=== PATIENT | female | born 1995 ===

== ENCOUNTER 2017-02-03 13:18 | Emergency (ER) | payer MEDICAID ==
[2017-02-03 13:35] VITALS: BP 103/68; PULSE 69; RESP 18; TEMP 98.2; O2SAT 100
[2017-02-03 14:08] LABS: RBC URINE 12 /hpf (0-3); URINE BACTERIA RARE (<OCC); URINE BILIRUBIN NEGATIVE (NEGATIVE); URINE BLOOD NEGATIVE (NEGATIVE); URINE COLOR Yellow (YELLOW); URINE GLUCOSE (UA) NORMAL (Normal); URINE KETONE NEGATIVE (NEGATIVE); URINE LEUKOCYTE ESTERASE 2+ Leu/uL (Negative); URINE PROTEIN NEGATIVE (NEGATIVE); URINE UROBILINOGEN NORMAL mg/dL (0.2-1.0); WBC URINE 16 /hpf (0-5)
--- NOTE | 2017-02-03 16:10 | US ---
HISTORY: pain, s/p d c 4 days ago. LMP 12/10/2016. COMPARISON: 10/30/2016 TECHNIQUE: Transabdominal, transvaginal. Real -time technique with 2D, duplex and color Doppler. FINDINGS: UTERUS: Measures 4.5 x 9.7 cm. Normal in size and appearance. No fibroid or other mass lesion seen. ENDOMETRIUM: Measures 9.5 mm in diameter. No ultrasound findings to suggest gestational sac, fluid, debris, mass or polyp or other pathologic process within the endometrium. CERVIX: No cervical abnormality identified. Closed cervix 3.2 cm in length RIGHT OVARY: Measures 1.3 x 3.3 cm. No solid mass. Normal flow. Multiple subcentimeter follicles. LEFT OVARY: Measures 3.7 x 3.1 cm. No solid mass. Normal flow. Full field digital CC and MLO views of bilateral breasts were obtained. Computer-aided detection was utilized. FREE FLUID: Trace free fluid identified in the pelvis/cul de sac. OTHER FINDINGS: None. IMPRESSION: No acute findings related to/accounting for the clinical presentation. Incidental finding(s): Free fluid in the cul-de-sac, trace amount.
--- NOTE | 2017-02-03 16:22 | C.PDOC ---
History Of Present Illness The patient, a 21 y/o female, presents to the ED for evaluation of vaginal pain and itching associated which began yesterday. Patient is s/p D&C which she underwent around 4 days ago. She notes experiencing heavy bleeding after the procedure (which is normally gets s/p d&c) and now has spotting now. On antibiotics- doxycyline s/p D&C. Patient admits to engaging in intercourse multiple times following the D&C. Patient denies fever, chills, back pain, abdominal pain, vaginal discharge. Time Seen by Provider: 02/03/17 13:52 Chief Complaint (Nursing): Female Genitourinary History Per: Patient History/Exam Limitations: language barrier Onset/Duration Of Symptoms: Hrs Current Symptoms Are (Timing): Still Present Quality Of Discomfort: "Pain" Associated Symptoms: denies: Fever, Chills, Back Pain Additional History Per: Patient Abnormal Vaginal Bleeding: Yes : 13 Para: 1 Past Medical History Reviewed: Historical Data, Nursing Documentation, Vital Signs Vital Signs: Last Vital Signs Temp 98.2 F 02/03/17 13:34 Pulse 69 02/03/17 13:34 Resp 18 02/03/17 16:26 BP 103/68 02/03/17 13:34 Pulse Ox 100 02/03/17 18:32 - Medical History PMH: No Chronic Diseases Surgical History: Appendectomy - [facility] Procedures RESECTION OF APPENDIX, PERCUTANEOUS ENDOSCOPIC APPROACH (07/12/16) Family History: States: Unknown Family Hx - Social History Hx Alcohol Use: No Hx Substance Use: No - Immunization History Hx Tetanus Toxoid Vaccination: No Hx Influenza Vaccination: No Hx Pneumococcal Vaccination: No Review Of Systems Except As Marked, All Systems Reviewed And Found Negative. Constitutional: Negative for: Fever, Chills Genitourinary: Positive for: Vaginal Bleeding, Pelvic Pain. Negative for: Vaginal Discharge Musculoskeletal: Negative for: Back Pain Physical Exam - Physical Exam Appears: Non-toxic, No Acute Distress Skin: Normal Color, Warm, Dry Head: Atraumatic, Normacephalic Eye(s): bilateral: Normal Inspection, EOMI Nose: Normal Oral Mucosa: Moist Neck: Normal ROM, Supple Chest: Symmetrical Cardiovascular: Rhythm Regular Respiratory: Normal Breath Sounds, No Accessory Muscle Use Gastrointestinal/Abdominal: Soft, No Tenderness, No Guarding, No Rebound Back: Normal Inspection, No CVA Tenderness, No Vertebral Tenderness, No Paraspinal Tenderness Pelvic: No Vaginal Bleeding, Vaginal Discharge (white, clumpy ), No Cervical Motion Tenderness Extremity: Normal ROM, Capillary Refill (less than 2 seconds ) Neurological/Psych: Oriented x3, Normal Speech, Normal Cognition Gait: Steady ED Course And Treatment O2 Sat by Pulse Oximetry: 100 (on RA) Pulse Ox Interpretation: Normal - CT Scan/US Pelvis/Transvaginal US Other Rad Studies (CT/US): Interpreted By Me, Read By Radiologist, Radiology Report Reviewed CT/US Interpretation: Accession No. : [id number]. Patient Name / ID : MARTY MELO / [id number]. Exam Date : 02/03/2017 15:38:43 ( Approved ). Study Comment : Sex / Age : F / 21Y. Creator : Suresh Smith MD. Dictator : Suresh Smith MD. Aba Tutor : Fig Caprifier : Suresh Smith MD. Approver2 : Report Date : 02/03/2017 16:08:20. My Comment : . HISTORY: pain, s/p d c 4 days ago. LMP 12/10/2016. COMPARISON: 2016. TECHNIQUE: Transabdominal, transvaginal. Real -time technique with 2D, duplex and color Doppler. FINDINGS: UTERUS: Measures 4.5 x 9.7 cm. Normal in size and appearance. No fibroid or other mass lesion seen. ENDOMETRIUM: Measures 9.5 mm in diameter. No ultrasound findings to suggest gestational sac, fluid, debris, mass or polyp or other pathologic process within the endometrium. CERVIX: No cervical abnormality identified. Closed cervix 3.2 cm in length. RIGHT OVARY: Measures 1.3 x 3.3 cm. No solid mass. Normal flow. Multiple subcentimeter follicles. LEFT OVARY: Measures 3.7 x 3.1 cm. No solid mass. Normal flow. Full field digital CC and MLO views of bilateral breasts were obtained. Computer-aided detection was utilized. FREE FLUID: Trace free fluid identified in the pelvis/cul de sac. OTHER FINDINGS: None. IMPRESSION: No acute findings related to/accounting for the clinical presentation. Incidental finding(s): Free fluid in the cul-de-sac, trace amount. Progress Note: UA and Pelvis/Transvaginal US ordered and reviewed. Pt recieved Diflucan PO. On reassessment, patient is resting comfortably, showing no signs of distress, and notes an improvment in her symptoms. Pt is on doxyclycline s/p D&c for two more days. Denies dysuria, hematuria, and urinary frequency. therefore pt will not be given tx for UTI. culture ordered. Pt is encouraged to avoid sexual intercourse until she follows up with her [employer]. Pt is advised to engage in safe sexual intercourse. She states she is planning to follow up with her [facility] and will inquire about IUD with her doctor. Pt is advised to follow up with [facility] within 1-2 days for further evaluation. Disposition - Disposition Disposition: HOME/ ROUTINE Disposition Time: 16:20 Condition: STABLE Additional Instructions: Do not have sexual intercourse until follow up with your [employer]. Return to ER if symptoms persist or worsen. No tenga relaciones sexuales hasta que siga con jade [employer]. Regrese al ER si los s ntomas persisten o empeoran. Prescriptions: Miconazole/Cleanser 17 On Wipe [Monistat 3 Combo Pack] 1 each VG QPM #1 kit Instructions: Vulvovaginal Candidiasis (ED) Print Language: TURKMEN - Clinical Impression Clinical Impression: Vulvovaginal candidiasis - PA / GYNECOLOGIST / Resident Statement MD/DO has reviewed & agrees with the documentation as recorded. - Scribe Statement The provider has reviewed the documentation as recorded by the Scribe (Sabi Porras) All medical record entries made by the Scribe were at my direction and personally dictated by me. I have reviewed the chart and agree that the record accurately reflects my personal performance of the history, physical exam, medical decision making, and the department course for this patient. I have also personally directed, reviewed, and agree with the discharge instructions and disposition.
== END 2017-02-03 16:26 | disposition home or self-care (01) ==
LOC: C.ER 13:18
DX: B37.3 Candidiasis of vulva and vagina (principal); Z98.890 Other specified postprocedural states